=== PATIENT | female | born 1940 | race Caucasian/White ===

== ENCOUNTER → 2017-07-10 | Outpatient (CLI) | payer MEDICARE, MEDICAID ==
--- NOTE | 2017-07-10 17:40 | RADIOLOGY REPORT (SQ) ---
EXAM DESCRIPTION: CT LTD RENAL STONE PROTOCOL ON COMPLETED DATE/TIME: 07/10/2017 5:21 pm REASON FOR STUDY: CALCULUS OF URETER N20.1 CALCULUS OF URETER COMPARISON: None. TECHNIQUE: CT scan of the abdomen and pelvis performed without intravenous or oral contrast. Images reviewed with lung, soft tissue, and bone windows. Reconstructed coronal and sagittal MPR images revi ewed. All images stored on PACS. All CT scanners at this facility use dose modulation, iterative reconstruction, and/or weight based d osing when appropriate to reduce radiation dose to as low as reasonably achievable (ALARA). [facility]: Dose Right [facility]: CareDose [facility]: Dose Right [facility]: Teradose 4D [facility]: Smart [employer] RADIATION DOSE: Up-to-date CT equipment and radiation dose reduction techniques were employed. CTDIv ol: 7.0 mGy. DLP: 339 mGy-cm.mGy. LIMITATIONS: None. FINDINGS: LOWER CHEST: No significant findings. No nodules or infiltrates. NON-CONTRASTED LIVER, SPLEEN, ADRENALS: Evaluation limited by lack of IV contrast. No identified sign ificant masses. PANCREAS: No masses. No peripancreatic inflammatory changes. GALLBLADDER: Surgically absent. RIGHT KIDNEY AND URETER: No suspicious masses. Assessment limited by lack of IV contrast. No signif icant calcifications. No hydronephrosis or hydroureter. LEFT KIDNEY AND URETER: No suspicious masses. Assessment limited by lack of IV contrast. Cannot ent irely rule out a 3 mm stone in the distal left ureter, but there is no hydronephrosis. This may repr esent a phlebolith. AORTA AND RETROPERITONEUM: No aneurysm. No retroperitoneal masses or adenopathy. BOWEL AND PERITONEAL CAVITY: No masses or inflammatory changes are appreciated. Surgical suture is p resent in the small bowel in the mid pelvis. APPENDIX: Surgically absent. PELVIS, BLADDER, AND ABDOMINAL WALL:No abnormal masses. No free fluid. Bladder normal. BONES: No significant findings. OTHER: No other significant finding. IMPRESSION: 1. There is a 3 mm calcification in the left side of the pelvis there could possibly be in the distal ureter, but there is no hydronephrosis or hydroureter. COMMENT: Quality ID # [id number]: Final reports with documentation of one or more dose reduction techniques (e.g., Automated exposure control, adjustment of the mA and/or kV according to patient size, use of iterative reconstruction technique) TECHNICAL DOCUMENTATION: JOB ID: [id number] [employer]- All Rights Reserved
== END ==
LOC: RAD 16:57
PROVIDERS: ATTEND Internal Medicine
DX: N20.1 Calculus of ureter (principal)
CPT/HCPCS: 76380

== ENCOUNTER 2018-01-24 15:45 | Emergency (ER) | payer MEDICARE, MEDICAID ==
[2018-01-24] MEDS ORDERED: LIDOCAINE 1% INJ-PF (10 MG/ML) 30 ML SDV INJ ONE (15:51)
--- NOTE | 2018-01-24 16:38 | ER Document Report ---
ED General - General Chief Complaint: Fall Stated Complaint: FALL Time Seen by Provider: 01/24/18 15:45 Mode of Arrival: Medic Information source: Patient Notes: 77-year-old female presents after mechanical fall by EMS. Patient notes she tripped over a curb, fell face forward and tried to catch herself with her hands but struck her face. Her glasses are noted to have cut her nose. Patient denies any other injuries and denies any back pain neck pain Patient denies any chest pain loss consciousness or any other concerns TRAVEL OUTSIDE OF THE [place] IN LAST 30 DAYS: No - HPI Onset: Just prior to arrival Onset/Duration: Sudden Quality of pain: Achy Severity: Mild Pain Level: 1 Associated symptoms: Other Exacerbated by: Denies Relieved by: Denies Similar symptoms previously: No Recently seen / treated by doctor: No - Related Data Allergies/Adverse Reactions: codeine [Codeine] Allergy (Unknown, Verified 01/24/18 15:53) fluoxetine HCl [From Prozac] Allergy (Unknown, Verified 01/24/18 15:53) Past Medical History - Social History Smoking Status: Never Smoker Cigarette use (# per day): No Chew tobacco use (# tins/day): No Smoking Education Provided: No Frequency of alcohol use: None Drug Abuse: None Family History: Reviewed & Not Pertinent Patient has suicidal ideation: No Patient has homicidal ideation: No - Past Medical History Cardiac Medical History: Reports: Hx Congestive Heart Failure, Hx Hypercholesterolemia, Hx Hypertension Denies: Hx Coronary Artery Disease, Hx Heart Attack Pulmonary Medical History: Reports: Hx Asthma, Hx Bronchitis, Hx Pneumonia Denies: Hx COPD, Hx Tuberculosis Neurological Medical History: Denies: Hx Cerebrovascular Accident, Hx Seizures Endocrine Medical History: Reports: Hx Hypothyroidism Renal/ Medical History: Denies: Hx Peritoneal Dialysis GI Medical History: Reports: Hx Gastroesophageal Reflux Disease Musculoskeltal Medical History: Reports Hx Arthritis, Reports Hx Fibromyalgia Psychiatric Medical History: Reports: Hx Anxiety, Hx Depression Past Surgical History: Reports: Hx Appendectomy, Hx Bowel Surgery - partial bowel resection, Hx Cholecystectomy, Hx Hysterectomy - total, Hx Orthopedic Surgery - right rotator cuff, Hx Thyroid Surgery - partial thyroidectomy. Denies: Hx Pacemaker - Immunizations Hx Diphtheria, Pertussis, Tetanus Vaccination: Yes Hx Pneumococcal Vaccination: 10/01/12 Review of Systems - Review of Systems Notes: REVIEW OF SYSTEMS: CONSTITUTIONAL : Denies fever, chills, or sweats. Denies recent illness. EENT: Admits nose injury CARDIOVASCULAR: Denies chest pain. Denies palpitations or racing or irregular heart beat. Denies ankle edema. RESPIRATORY: Denies cough, cold, or chest congestion. Denies shortness of breath, difficulty breathing, or wheezing. GASTROINTESTINAL: Denies abdominal pain or distention. Denies nausea, vomiting , or diarrhea. Denies blood in vomitus, stools, or per rectum. Denies black, tarry stools. Denies constipation. GENITOURINARY: Denies difficulty urinating, painful urination, burning, frequency, blood in urine, or discharge. FEMALE GENITOURINARY: Denies vaginal bleeding, heavy or abnormal periods, irregular periods. Denies vaginal discharge or odor. MUSCULOSKELETAL: Denies back or neck pain or stiffness. Denies joint pain or swelling. SKIN: Denies rash, lesions or sores. HEMATOLOGIC : Denies easy bruising or bleeding. LYMPHATIC: Denies swollen, enlarged glands. NEUROLOGICAL: Denies confusion or altered mental status. Denies passing out or loss of consciousness. Denies dizziness or lightheadedness. Denies headache. Denies weakness or paralysis or loss of use of either side. Denies problems with gait or speech. Denies sensory loss, numbness, or tingling. Denies seizures. PSYCHIATRIC: Denies anxiety or stress. Denies depression, suicidal ideation, or homicidal ideation. ALL OTHER SYSTEMS REVIEWED AND NEGATIVE. PHYSICAL EXAMINATION: GENERAL: Well-appearing, well-nourished and in no acute distress. HEAD: Mild deformity nasal bridge laceration of the nasal bridge noted EYES: Pupils equal round and reactive to light, extraocular movements intact, conjunctiva are normal. ENT: Nares patent, oropharynx clear without exudates. Moist mucous membranes. NECK: Normal range of motion, supple without lymphadenopathy LUNGS: Breath sounds clear to auscultation bilaterally and equal. No wheezes rales or rhonchi. HEART: Regular rate and rhythm without murmurs ABDOMEN: Soft, nontender, nondistended abdomen. No guarding, no rebound. No masses appreciated. Female : deferred Musculoskeletal: Normal range of motion, no pitting or edema. No cyanosis. NEUROLOGICAL: Cranial nerves grossly intact. Normal speech, normal gait. Normal sensory, motor exams PSYCH: Normal mood, normal affect. SKIN: Laceration measuring approximately 3.2 cm of the nasal bridge, contusions of the forehead and orbital region Dictation was performed using [employer] voice recognition software Physical Exam - Vital signs Vitals: Temp Pulse Resp BP Pulse Ox 98.3 F 62 18 155/69 H 100 01/24/18 15:45 01/24/18 15:45 01/24/18 15:45 01/24/18 15:45 01/24/18 15:45 Course - Re-evaluation Re-evalutation: 01/24/18 16:41 CT pending, tetanus is up-to-date 01/25/18 08:36 CT noted no significant abnormality, wound care was provided, patient tolerated laceration repair with no complications, 3 sutures were placed follow-up in 3-5 days or immediately if there is any sign of infection or any other concerns After performing a Medical Screening Examination, I estimate there is LOW risk for OPEN FRACTURE, COMPARTMENT SYNDROME, TENDON RUPTURE, ACUTE NEUROVASCULAR INJURY, or RETAINED FOREIGN BODY, thus I consider the discharge disposition reasonable. Also, there is no evidence or peritonitis, sepsis, or toxicity. I have reevaluated this patient multiple times and no significant life threatening changes are noted. The patient and I have discussed the diagnosis and risks, and we agree with discharging home with close follow-up with the understanding that symptoms and presentations can change. We also discussed returning to the Emergency Department immediately if new or worsening symptoms occur. We have discussed the symptoms which are most concerning (e.g., changing or worsening pain, fever, numbness, weakness, cool or painful digits) that necessitate immediate return. - Vital Signs Vital signs: Temp Pulse Resp BP Pulse Ox 98.5 F 60 18 167/77 H 98 01/24/18 18:22 01/24/18 18:22 01/24/18 15:45 01/24/18 18:22 01/24/18 18:22 - Diagnostic Test Radiology reviewed: Image reviewed - CT ORBIT without contrast notes no acute abnormality, Reports reviewed Procedures - Laceration/Wound Repair Mid- Face Time completed: 17:00 Wound length (cm): 3.2 Wound's Depth, Shape: Superficial, Flap Laceration pre-procedure: Sterile PPE donned, Sterile drapes applied, Shur- Clens applied Anesthetic type: 1% Lidocaine Volume Anesthetic (mLs): 8 Wound explored: Clean, No foreign body removed Irrigated w/ Saline (mLs): 1,500 Wound Debrided: Minimal Wound Repaired With: Sutures Suture Size/Type: 5:0, Ethilon Number of Sutures: 3 Post-procedure wound care: Sterile dressing applied Post-procedure NV exam normal: Yes Complications: No Discharge - Discharge Clinical Impression: Laceration of nose Qualifiers: Encounter type: initial encounter Qualified Code(s): S01.21XA - Laceration without foreign body of nose, initial encounter Facial injury Qualifiers: Encounter type: initial encounter Qualified Code(s): S09.93XA - Unspecified injury of face, initial encounter Concussion Qualifiers: Encounter type: initial encounter Loss of consciousness presence/duration: without LOC Qualified Code(s): S06.0X0A - Concussion without loss of consciousness, initial encounter Condition: Stable Disposition: HOME, SELF-CARE Instructions: Laceration Care ([facility]), Soap Cleansing ([facility]) Referrals: VANIA MAXWELL MD [Primary Care Provider] - Follow up in 3-5 days
--- NOTE | 2018-01-24 17:05 | RADIOLOGY REPORT (SQ) ---
EXAM DESCRIPTION: CT FACIAL AREA WITHOUT COMPLETED DATE/TIME: 01/24/2018 4:55 pm REASON FOR STUDY: fall , nasal inury COMPARISON: None. TECHNIQUE: Noncontrasted images through the facial bones and orbits windowed for bone and soft tissu e. Additional coronal and sagittal reconstructed images reviewed. All images stored on PACS. All CT scanners at this facility use dose modulation, iterative reconstruction, and/or weight based d osing when appropriate to reduce radiation dose to as low as reasonably achievable (ALARA). [facility]: Dose Right [facility]: CareDose [facility]: Dose Right [facility]: Teradose 4D [facility]: Smart [employer] RADIATION DOSE: CT Rad equipment meets quality standard of care and radiation dose reduction techniq ues were employed. CTDIvol: 30.4 mGy. DLP: 553 mGy-cm. mGy. LIMITATIONS: None. FINDINGS: FACIAL BONES: No fractures. Calcific density is identified within the right frontal sinus most consistent with an osteoma ORBITS: Intact. No fracture. Symmetric intact globes and retroorbital soft tissues. PARANASAL SINUSES: Clear. No significant mucosal thickening, mass or fluid. No nasal polyps. Maxill ron sinus outlets are patent. SOFT TISSUES: Air is identified in the soft tissues anterior to the nasal bones presumably posttrauma tic in nature. INFERIOR BRAIN: Limited view. No acute findings. OTHER: No other significant finding. IMPRESSION: No acute fracture. Air is identified in the soft tissues anterior to the nasal bones pr esumably posttraumatic in nature. Other findings as noted above TECHNICAL DOCUMENTATION: JOB ID: [id number] Quality ID # 436: Final reports with documentation of one or more dose reduction techniques (e.g., Au tomated exposure control, adjustment of the mA and/or kV according to patient size, use of iterative reconstruction technique) 2010 [employer] All Rights Reserved Reading location - IP/workstation name: [email or web address]
[2018-01-24 18:24] VITALS: BP 167/77
== END 2018-01-24 18:23 | disposition home or self-care (01) ==
LOC: ER 15:45
PROC: 0HQ1XZZ Repair Face Skin, External Approach (ICD-10-PCS; principal; 2018-01-24)
DX: S01.21XA Laceration without foreign body of nose, initial encounter (principal); S06.0X0A Concussion without loss of consciousness, initial encounter; S09.93XA Unspecified injury of face, initial encounter; W18.09XA Striking against other object with subsequent fall, initial encounter; I10 Essential (primary) hypertension; J45.909 Unspecified asthma, uncomplicated
CPT/HCPCS: 99284; 90471; 70486; 12013; J3490

== ENCOUNTER → 2018-02-28 | Outpatient (CLI) | payer MEDICARE, MEDICAID ==
--- NOTE | 2018-03-01 11:28 | RADIOLOGY REPORT (SQ) ---
EXAM DESCRIPTION: MRI HEAD WITHOUT COMPLETED DATE/TIME: 02/28/2018 7:49 pm REASON FOR STUDY: R41.3 OTHR AMNESIA R41.3 OTHER AMNESIA COMPARISON: None. TECHNIQUE: Multiplanar imaging includes non-contrasted T1, T2, FLAIR, and diffusion with ADC map seq uences. Images stored on PACS. LIMITATIONS: None. FINDINGS: ANATOMY: No developmental anomalies. Normal vascular flow voids. Pituitary fossa normal. CSF SPACES: Normal in size and contour. No hemorrhage. CEREBRUM: Sulci and gyri normal in size and contour. Minimal age-appropriate increased white matter signal on FLAIR imaging. No evidence of hemorrhage, mass, or extraaxial fluid collection. POSTERIOR FOSSA: No signal alteration. No hemorrhage. No edema, masses or mass effect. Internal marjorie tory canals, cerebello-pontine angles, mastoids normal. DIFFUSION IMAGING: Negative for acute or sub-acute infarction. ORBITS: No masses. Globes normal. PARANASAL SINUSES: Minimal mucous membrane thickening left frontal and ethmoid air cells. OTHER: No other significant finding. IMPRESSION: ESSENTIALLY NORMAL MRI OF THE BRAIN FOR AGE, WITHOUT INTRAVENOUS GADOLINIUM CONTRAST. EVIDENCE OF ACUTE STROKE: NO. TECHNICAL DOCUMENTATION: JOB ID: [id number] [employer]- All Rights Reserved Reading location - IP/workstation name: [facility]
== END ==
LOC: RAD 19:18
PROVIDERS: ATTEND Internal Medicine
DX: R41.3 Other amnesia (principal)
CPT/HCPCS: 70551

== ENCOUNTER → 2018-07-04 | Outpatient (CLI) | payer MEDICARE, MEDICAID ==
--- NOTE | 2018-07-04 15:33 | RADIOLOGY REPORT (SQ) ---
EXAM DESCRIPTION: KNEE LEFT 2 VIEWS COMPLETED DATE/TIME: 07/04/2018 3:08 pm REASON FOR STUDY: PAIN IN LT KNEE M54.6 PAIN IN THORACIC SPINE M25.561 PAIN IN RIGHT KNEE M25.562 PAIN IN LEFT KNEE COMPARISON: None. NUMBER OF VIEWS: Two views. TECHNIQUE: AP and lateral radiographic images acquired of the left knee. LIMITATIONS: None. FINDINGS: MINERALIZATION: Normal. BONES: No acute fracture or dislocation. No worrisome bone lesions. JOINT: No effusion. SOFT TISSUES: No soft tissue swelling. No radio-opaque foreign body. OTHER: No other significant finding. IMPRESSION: NEGATIVE STUDY OF THE LEFT KNEE. NO RADIOGRAPHIC EVIDENCE OF ACUTE INJURY. TECHNICAL DOCUMENTATION: JOB ID: [id number] [employer]- All Rights Reserved Reading location - IP/workstation name: [facility] [email or web address]
--- NOTE | 2018-07-04 15:34 | RADIOLOGY REPORT (SQ) ---
EXAM DESCRIPTION: KNEE RIGHT 2 VIEWS COMPLETED DATE/TIME: 07/04/2018 3:08 pm REASON FOR STUDY: DEONNA IN RT KNEE M54.6 PAIN IN THORACIC SPINE M25.561 PAIN IN RIGHT KNEE M25.562 PAIN IN LEFT KNEE COMPARISON: None. NUMBER OF VIEWS: Two views. TECHNIQUE: AP and lateral radiographic images acquired of the right knee. LIMITATIONS: None. FINDINGS: MINERALIZATION: Normal. BONES: No acute fracture or dislocation. No worrisome bone lesions. JOINT: No effusion. Mild lateral compartment chondrocalcinosis SOFT TISSUES: No soft tissue swelling. No radio-opaque foreign body. OTHER: No other significant finding. IMPRESSION: Right knee lateral compartment chondrocalcinosis without significant joint space narrowi ng or bony spurring TECHNICAL DOCUMENTATION: JOB ID: [id number] [employer]- All Rights Reserved Reading location - IP/workstation name: [facility]
--- NOTE | 2018-07-04 15:36 | RADIOLOGY REPORT (SQ) ---
EXAM DESCRIPTION: T SPINE AP/LAT COMPLETED DATE/TIME: 07/04/2018 3:08 pm REASON FOR STUDY: PAIN IN THORACIC SPINE M54.6 PAIN IN THORACIC SPINE M25.561 PAIN IN RIGHT KNEE M 25.562 PAIN IN LEFT KNEE COMPARISON: Lumbar spine films same date NUMBER OF VIEWS: Two views. TECHNIQUE: AP and lateral radiographic images acquired of the thoracic spine. LIMITATIONS: None. FINDINGS: MINERALIZATION: Osteopenic ALIGNMENT: Normal. No scoliosis. VERTEBRAE: No fracture or bone lesion. Maintained height, normal segmentation. DISCS: No significant loss of height or significant narrowing. No large osteophytes. HARDWARE: None in the spine. MEDIASTINUM AND SOFT TISSUES: Normal heart size and aortic contour. No soft tissue abnormality. VISUALIZED LUNG RANGEL: Clear. OTHER: 11 rib-bearing vertebral bodies are present. 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 TECHNICAL DOCUMENTATION: JOB ID: [id number] [employer]- All Rights Reserved Reading location - IP/workstation name: [email or web address]
--- NOTE | 2018-07-04 15:38 | RADIOLOGY REPORT (SQ) ---
EXAM DESCRIPTION: C SP 4 OR 5 VIEWS COMPLETED DATE/TIME: 07/04/2018 3:08 pm REASON FOR STUDY: CERVICALGIA M54.6 PAIN IN THORACIC SPINE M25.561 PAIN IN RIGHT KNEE M25.562 DEONNA N IN LEFT KNEE COMPARISON: MRI cervical spine 12/29/2010 NUMBER OF VIEWS: Five views. TECHNIQUE: AP, lateral, obliques and odontoid radiographic images acquired of the cervical spine. LIMITATIONS: None. FINDINGS: MINERALIZATION: Osteopenic ALIGNMENT: Anatomic. VERTEBRAE: Vertebral bodies of normal height. DISCS: Disc space loss of height without bulky osteophyte formation at C4-5, C5-6, and C6-7 FORAMINA: Mild left C4-5 foraminal narrowing. Mild right C5-6 foraminal narrowing LATERAL AND POSTERIOR ELEMENTS: Facets, lateral masses and spinous processes without significant find ings. HARDWARE: None in the spine. SOFT TISSUES: No masses or calcifications. Lung apices clear. OTHER: No other significant finding. IMPRESSION: Mild disc space loss of height. No high-grade central or foraminal encroachment. TECHNICAL DOCUMENTATION: JOB ID: [id number] [employer]- All Rights Reserved Reading location - IP/workstation name: [email or web address]
--- NOTE | 2018-07-04 15:40 | RADIOLOGY REPORT (SQ) ---
EXAM DESCRIPTION: LUMBAR SPINE COMPLETE COMPLETED DATE/TIME: 07/04/2018 3:08 pm REASON FOR STUDY: LOW BACK PAIN M54.6 PAIN IN THORACIC SPINE M25.561 PAIN IN RIGHT KNEE M25.562 P AIN IN LEFT KNEE COMPARISON: Thoracic spine films same date NUMBER OF VIEWS: Five views including obliques. TECHNIQUE: AP, lateral, oblique, and sacral radiographic images acquired of the lumbar spine. LIMITATIONS: None. FINDINGS: MINERALIZATION: Osteopenic SEGMENTATION: Hypoplastic ribs on the T12 vertebral body. This puts the most inferior well-developed disc space at L5-S1. ALIGNMENT: Normal. VERTEBRAE: Maintained height. No fracture or worrisome bone lesion. DISCS: Moderate disc space loss of height at L1-2, L2-3, and L4-5. POSTERIOR ELEMENTS: Pedicles and facets are intact. No pars defect or posterior arch defects. Mild diffuse bilateral lumbar facet arthropathy HARDWARE: Surgical clips right lower quadrant. Bowel Anastomotic kieran in the pelvis. PARASPINAL SOFT TISSUES: Normal. PELVIS: Not in the field of view. SI joints unremarkable OTHER: No other significant finding. IMPRESSION: Diffuse degenerative changes as above TECHNICAL DOCUMENTATION: JOB ID: [id number] [employer]- All Rights Reserved Reading location - IP/workstation name: [email or web address]
== END ==
LOC: OD 14:37
PROVIDERS: ATTEND Pain Medicine Pain Medicine
DX: M54.6 Pain in thoracic spine (principal); M25.561 Pain in right knee; M25.562 Pain in left knee; M54.2 Cervicalgia; M54.5 Low back pain; M47.896 Other spondylosis, lumbar region; M11.261 Other chondrocalcinosis, right knee
CPT/HCPCS: 72050; 72070; 72110

== ENCOUNTER → 2019-12-01 | Outpatient (CLI) | payer MEDICARE, MEDICAID ==
--- NOTE | 2019-12-01 15:53 | RADIOLOGY REPORT (SQ) ---
EXAM DESCRIPTION: CHEST PA/LATERAL COMPLETED DATE/TIME: 12/01/2019 2:06 pm REASON FOR STUDY: COUGH COMPARISON: 06/20/2013 EXAM PARAMETERS: NUMBER OF VIEWS: two views TECHNIQUE: Digital Frontal and Lateral radiographic views of the chest acquired. RADIATION DOSE: NA LIMITATIONS: none FINDINGS: LUNGS AND PLEURA: No opacities, masses or pneumothorax. No pleural effusion. MEDIASTINUM AND HILAR STRUCTURES: No masses or contour abnormalities. HEART AND VASCULAR STRUCTURES: Heart normal size. No evidence for failure. BONES: No acute findings. HARDWARE: None in the chest. OTHER: No other significant finding. IMPRESSION: NO SIGNIFICANT RADIOGRAPHIC FINDING IN THE CHEST. TECHNICAL DOCUMENTATION: JOB ID: [id number] 2010 [employer]- All Rights Reserved Reading location - IP/workstation name: [email or web address]
== END ==
LOC: OD 13:58
PROVIDERS: ATTEND Internal Medicine
DX: R05 Cough (principal)
CPT/HCPCS: 71046

== ENCOUNTER 2020-01-12 15:36 | Inpatient (IN) | payer MEDICARE, MEDICAID ==
--- NOTE | 2020-01-12 16:27 | ER Document Report ---
HPI - HPI Time Seen by Provider: 01/12/20 15:56 Context: Patient is an 79-year-old female who presents emergency department with a chief complaint of shortness of breath. Patient has been seen by her primary care provider and has direct admit orders. She has been treated for bronchitis with albuterol, steroids, and Levaquin, but has had little relief of her symptoms. - CONSTITUTIONAL Constitutional: DENIES: Fever, Chills - RESPIRATORY Respiratory: REPORTS: Trouble Breathing, Coughing - REPRODUCTIVE Reproductive: DENIES: : - MUSCULOSKELETAL Musculoskeletal: DENIES: Extremity pain - DERM Skin Color: Normal Skin Problems: None Past Medical History - General Information source: Patient - Social History Smoking Status: Unknown if Ever Smoked Family History: Reviewed & Not Pertinent - Past Medical History Cardiac Medical History: Reports: Hx Congestive Heart Failure, Hx Hypercholesterolemia, Hx Hypertension Denies: Hx Coronary Artery Disease, Hx Heart Attack Pulmonary Medical History: Reports: Hx Asthma, Hx Bronchitis, Hx Pneumonia Denies: Hx COPD, Hx Tuberculosis Neurological Medical History: Denies: Hx Cerebrovascular Accident, Hx Seizures Endocrine Medical History: Reports: Hx Hypothyroidism Renal/ Medical History: Denies: Hx Peritoneal Dialysis GI Medical History: Reports: Hx Gastroesophageal Reflux Disease Musculoskeletal Medical History: Reports Hx Arthritis, Reports Hx Fibromyalgia Psychiatric Medical History: Reports: Hx Anxiety, Hx Depression Past Surgical History: Reports: Hx Appendectomy, Hx Bowel Surgery - partial bowel resection, Hx Cholecystectomy, Hx Hysterectomy - total, Hx Orthopedic Surgery - right rotator cuff, Hx Thyroid Surgery - partial thyroidectomy. Denies: Hx Pacemaker - Immunizations Hx Diphtheria, Pertussis, Tetanus Vaccination: Yes Hx Pneumococcal Vaccination: 10/01/12 Vertical Provider Document - CONSTITUTIONAL Agree With Documented VS: Yes Exam Limitations: No Limitations General Appearance: No Apparent Distress - INFECTION CONTROL TRAVEL OUTSIDE OF THE [place] IN LAST 30 DAYS: No - HEENT HEENT: Atraumatic, Normocephalic, PERRLA - NECK Neck: Normal Inspection - RESPIRATORY Respiratory: Wheezing - throughout - CARDIOVASCULAR Cardiovascular: Regular Rate, Regular Rhythm Pulses: Normal: Radial - GI/ABDOMEN Gastrointestinal: Abdomen Soft - MUSCULOSKELETAL/EXTREMETIES Musculoskeletal/Extremeties: FROM - NEURO Level of Consciousness: Awake, Alert, Appropriate Motor/Sensory: No Motor Deficit, No Sensory Deficit - DERM Integumentary: Warm, Dry, No Rash Course - Re-evaluation Re-evalutation: 01/12/20 16:26 Patient arrives with admission orders to the [place] floor. Coded orders placed by myself. We will continue orders by Dr. Alfred. Discharge - Discharge Clinical Impression: Cough, Bronchitis Condition: Stable Disposition: ADMITTED INPATIENT Admitting Provider: Aubrie Unit Admitted: Medical Floor - COVID rule out
[2020-01-12 16:40] LABS: ABSOLUTE BASOPHILS # (AUTO) 0.1 10^3/uL (0.0-0.2); ABSOLUTE EOSINOPHILS # (AUTO) 0.3 10^3/uL (0.0-0.6); ABSOLUTE LYMPHOCYTES (AUTO) 3.3 10^3/uL (0.5-4.7); ABSOLUTE MONOCYTES (AUTO) 0.9 10^3/uL (0.1-1.4); ABSOLUTE NEUT (AUTO) 2.7 10^3/uL (1.7-8.2); BASOPHILS % (AUTO) 0.9 % (0-2); EOSINOPHILS % (AUTO) 4.7 % (0-6); HEMATOCRIT 38.4 % (36.0-47.0); HEMOGLOBIN 13.4 g/dL (12.0-15.5); LYMPHOCYTES % (AUTO) 45.1 % (13-45); MEAN CORPUSCULAR HEMOGLOBIN 34.1 pg (27.0-33.4); MEAN CORPUSCULAR HGB CONC 34.9 g/dL (32.0-36.0); MEAN CORPUSCULAR VOLUME 98 fl (80-97); MONOCYTES % (AUTO) 11.9 % (3-13); PLATELET COUNT 191 10^3/uL (150-450); RED BLOOD COUNT 3.93 10^6/uL (3.72-5.28); RED CELL DISTRIBUTION WIDTH 12.9 % (11.5-14.0); SEGMENTED NEUTROPHILS % (AUTO) 37.4 % (42-78); TOTAL CELLS COUNTED % (AUTO) 100 %; WHITE BLOOD COUNT 7.3 10^3/uL (4.0-10.5)
[2020-01-12 16:48] LABS: ALBUMIN 4.4 g/dL (3.5-5.0); ALKALINE PHOSPHATASE 86 U/L (38-126); ANION GAP 6 (5-19); ASPARTATE AMINO TRANSFERASE 27 U/L (14-36); BILIRUBIN,TOTAL 0.8 mg/dL (0.2-1.3); BLOOD UREA NITROGEN 21 mg/dL (7-20); CALCIUM 9.4 mg/dL (8.4-10.2); CARBON DIOXIDE 28 mmol/L (22-30); CHLORIDE 103 mmol/L (98-107); GLUCOSE 107 mg/dL (75-110); POTASSIUM 4.1 mmol/L (3.6-5.0); TOTAL PROTEIN 7.3 g/dL (6.3-8.2)
[2020-01-12 17:13] LABS: APPEARANCE,URINE CLEAR; BILIRUBIN,URINE NEGATIVE (NEGATIVE); COLOR,URINE YELLOW; GLUCOSE, URINE NEGATIVE (NEGATIVE); KETONES,URINE NEGATIVE (NEGATIVE); LEUKOCYTE ESTERASE,URINE NEGATIVE (NEGATIVE); NITRITE,URINE NEGATIVE (NEGATIVE); PROTEIN,URINE NEGATIVE (NEGATIVE); URINE SPECIFIC GRAVITY 1.012; UROBILINOGEN,URINE NEGATIVE mg/dL (<2.0)
[2020-01-12] MEDS: CEFTRIAXONE 1 GM/D5W RTU 1 GM/50 ML RTUPB IV SCH (17:52)
--- NOTE | 2020-01-12 17:58 | RADIOLOGY REPORT (SQ) ---
EXAM DESCRIPTION: CT CHEST WITHOUT IMAGES COMPLETED DATE/TIME: 01/12/2020 4:38 pm REASON FOR STUDY: cough. COMPARISON: Chest radiograph, 12/01/2019. TECHNIQUE: CT scan performed of the chest without intravenous contrast. Images reviewed with lung, soft tissue and bone windows. Reconstructed coronal and sagittal MPR images reviewed. All images st ored on PACS. All CT scanners at this facility use dose modulation, iterative reconstruction, and/or weight based d osing when appropriate to reduce radiation dose to as low as reasonably achievable (ALARA). [facility]: Dose Right [facility]: CareDose [facility]: Dose Right [facility]: Teradose 4D [facility]: Smart [employer]Style Innovations RADIATION DOSE: CT Rad equipment meets quality standard of care and radiation dose reduction techniq ues were employed. CTDIvol: 12.9 mGy. DLP: 531 mGy-cm. mGy. LIMITATIONS: No technical limitations. FINDINGS: LUNGS AND PLEURA: No masses, infiltrates, or pneumothorax. No pleural effusions or pleura l calcifications. HILAR AND MEDIASTINAL STRUCTURES: No identified masses or abnormal nodes. No obvious aneurysm. HEART AND VASCULAR STRUCTURES: No aneurysm. No pericardial effusion. UPPER ABDOMEN: No significant findings. Limited exam. THYROID AND OTHER SOFT TISSUES: No masses. No adenopathy. BONES: No significant finding. HARDWARE: None in the chest. OTHER: No other significant findings. IMPRESSION: NO SIGNIFICANT FINDING ON NON-CONTRASTED CHEST CT. TECHNICAL DOCUMENTATION: JOB ID: [id number] Quality ID # [id number]: Final reports with documentation of one or more dose reduction techniques (e.g., Au tomated exposure control, adjustment of the mA and/or kV according to patient size, use of iterative reconstruction technique) 2010 [employer]- All Rights Reserved Reading location - IP/workstation name: [email or web address]
[2020-01-12] MEDS ORDERED: ALBUTEROL SULFATE HFA (90 MCG/PUFF) 8 GM MDI IH SCH (18:00)
[2020-01-12] MEDS ORDERED: LEVOFLOXACIN 750 MG/D5W RTU 750 MG/150 ML RTUPB IV ONE (18:00)
--- NOTE | 2020-01-12 18:34 | EKG REPORT ---
SEVERITY:- OTHERWISE NORMAL ECG - SINUS RHYTHM NONSPECIFC IVCD : Confirmed by: Tay Guzman MD 12-Jan-2020 18:33:27
[2020-01-12] MEDS: METHYLPREDNISOLONE INJ 125 MG/2 ML SDV IV SCH (18:42)
[2020-01-12] MEDS ORDERED: (PENDING PHARMACY ID) (Omeprazole [Prilosec 20 Mg Capsule] 20 MG) PO SCH (19:15)
[2020-01-12] MEDS ORDERED: (PENDING PHARMACY ID) (Vortioxetine Hydrobromide [Trintellix] 5 MG) PO SCH (19:15)
[2020-01-12] MEDS ORDERED: (PENDING PHARMACY ID) (Losartan Potassium [Losartan Potassium] 100 MG) PO SCH (19:15)
[2020-01-12] MEDS ORDERED: (PENDING PHARMACY ID) (Pravastatin Sodium [Pravachol] 40 MG) PO SCH (19:15)
--- NOTE | 2020-01-12 19:32 | PDOC H&P ---
History of Present Illness Admission Date/PCP: 01/12/20 16:22 VANIA MAXWELL MD History of Present Illness: LINDA WHITESIDE is a 79 year old female, She has a history of asthmatic bronchitis she came to the office today for evaluation of respiratory symptoms, cough, shortness of breath she was seen in the office about a month ago last month when she came for evaluation of respiratory symptoms including wheezing cough shortness of breath at the time she was treated with p.o. prednisone antibiotic with improvement in her symptoms. She stated that she did not completely recover from last month when she was treated for acute asthmatic bronchitis, the oxygen saturation in the office was normal at 96 but I felt patient needed to be admitted to the hospital for further management especially because of her age and in the era of coronavirus pandemic I thought she needed to be admitted and also to rule out COVID 19.The CAT scan of the chest done was negative for any acute disease Past Medical History Cardiac Medical History: Reports: Hyperlipidema, Hypertension Pulmonary Medical History: Reports: Asthma, Bronchitis, Pneumonia Endocrine Medical History: Reports: Hypothyroidism GI Medical History: Reports: Gastroesophageal Reflux Disease Musculoskeltal Medical History: Reports: Arthritis, Fibromyalgia Psychiatric Medical History: Reports: Depression Hematology: Reports: Anemia Past Surgical History Past Surgical History: Reports: Appendectomy, Cholecystectomy, Hysterectomy - total, Orthopedic Surgery - right rotator cuff Social History Smoking Status: Former Smoker Electronic Cigarette use?: No Frequency of Alcohol Use: None Hx Recreational Drug Use: Yes Drugs: None Hx Prescription Drug Abuse: No Family History Family History: Reviewed & Not Pertinent Parental Family History Reviewed: Yes Children Family History Reviewed: Yes Sibling(s) Family History Reviewed.: Yes Medication/Allergy Home Medications: Lorazepam [Ativan 1 mg Tablet] 2 tab PO BID PRN 04/24/13 Losartan Potassium 100 mg PO DAILY 04/24/13 Omeprazole [Prilosec 20 mg Capsule] 20 mg PO DAILY 04/24/13 Pravastatin Sodium [Pravachol] 40 mg PO DAILY 04/24/13 Hydrocodone Bit/Acetaminophen [Hydrocodon-Acetaminophen 5-325] 1 each PO Q6H PRN 02/03/14 Albuterol Sulfate [Albuterol Sulfate Hfa] 2 puff IH Q6HP PRN 01/12/20 Atenolol [Tenormin 50 mg Tablet] 50 mg PO DAILY 01/12/20 Levothyroxine Sodium [Synthroid 0.075 mg Tablet] 0.075 mg PO DAILY 01/12/20 Lubiprostone [Amitiza 8 Mcg Capsule] 8 mcg PO DAILY 01/12/20 Vortioxetine Hydrobromide [Brintellix] 5 mg PO DAILY 01/12/20 Allergies/Adverse Reactions: codeine [Codeine] Allergy (Unknown, Verified 01/24/18 15:53) fluoxetine HCl [From Prozac] Allergy (Unknown, Verified 01/24/18 15:53) Review of Systems Constitutional: PRESENT: fatigue Eyes: ABSENT: visual disturbances Ears: ABSENT: hearing changes Cardiovascular: ABSENT: chest pain, dyspnea on exertion, edema, orthropnea, palpitations Respiratory: PRESENT: cough, dyspnea Gastrointestinal: ABSENT: abdominal pain, constipation, diarrhea, hematemesis, hematochezia, nausea, vomiting Genitourinary: ABSENT: dysuria, hematuria Musculoskeletal: ABSENT: joint swelling Integumentary: ABSENT: rash, wounds Neurological: ABSENT: abnormal gait, abnormal speech, confusion, dizziness, focal weakness, syncope Psychiatric: ABSENT: anxiety, depression, homidical ideation, suicidal ideation Endocrine: ABSENT: cold intolerance, heat intolerance, menstrual abnormalities, polydipsia, polyuria Hematologic/Lymphatic: ABSENT: easy bleeding, easy bruising, lymphadenopathy Physical Exam Vital Signs: Temp Pulse Resp BP Pulse Ox 98.4 F 69 17 163/62 H 99 01/12/20 18:44 01/12/20 18:44 01/12/20 18:44 01/12/20 18:44 01/12/20 18:44 Intake & Output 01/11/20 01/12/20 01/13/20 06:59 06:59 06:59 Intake Total 50 Balance 50 Weight 72.7 kg General appearance: PRESENT: no acute distress Head exam: PRESENT: atraumatic, normocephalic Eye exam: PRESENT: conjunctiva pink, EOMI, PERRLA Ear exam: PRESENT: normal external ear exam Mouth exam: PRESENT: moist, tongue midline Neck exam: PRESENT: full ROM Respiratory exam: PRESENT: wheezes Cardiovascular exam: PRESENT: RRR, +S1, +S2 Vascular exam: PRESENT: normal capillary refill GI/Abdominal exam: PRESENT: normal bowel sounds, soft Rectal exam: PRESENT: deferred Neurological exam: PRESENT: alert, CN II-XII grossly intact Psychiatric exam: PRESENT: appropriate affect, normal mood Skin exam: PRESENT: dry, intact, warm. ABSENT: cyanosis, rash Results Laboratory Results: 01/12/20 16:20 01/12/20 16:20 01/12/20 01/12/20 01/12/20 16:10 16:20 16:20 WBC 7.3 RBC 3.93 Hgb 13.4 Hct 38.4 MCV 98 H MCH 34.1 H MCHC 34.9 RDW 12.9 Plt Count 191 Seg Neutrophils % 37.4 L Sodium 137.2 Potassium 4.1 Chloride 103 Carbon Dioxide 28 Anion Gap 6 BUN 21 H Creatinine 1.16 Est GFR ( Amer) 54 L Glucose 107 Calcium 9.4 Total Bilirubin 0.8 AST 27 Alkaline Phosphatase 86 Total Protein 7.3 Albumin 4.4 Urine Color YELLOW Urine Appearance CLEAR Urine pH 6.0 Ur Specific [place] 1.012 Urine Protein NEGATIVE Urine Glucose (UA) NEGATIVE Urine Ketones NEGATIVE Urine Blood NEGATIVE Urine Nitrite NEGATIVE Ur Leukocyte Esterase NEGATIVE Urine WBC (Auto) 1 Urine RBC (Auto) 0 Impressions: Chest CT 01/12/20 00:00 IMPRESSION: NO SIGNIFICANT FINDING ON NON-CONTRASTED CHEST CT. Assessment & Plan - Diagnosis (1) Severe persistent asthma with bronchitis and status asthmaticus Is this a current diagnosis for this admission?: Yes Plan: She has persistent severe asthma with status asthmaticus, she is not getting better despite optimal outpatient management, patient is admitted she will be tr eated with IV Solu-Medrol, presently in coronavirus unit to rule out coronavirus infection, she may need PFT and probably 2D echo (2) Failure of outpatient treatment Is this a current diagnosis for this admission?: Yes (3) Hypothyroid Qualifiers: Hypothyroidism type: unspecified Qualified Code(s): E03.9 - Hypothyroidism, unspecified Is this a current diagnosis for this admission?: Yes
[2020-01-12] MEDS: ALBUTEROL SULFATE HFA (90 MCG/PUFF) 200 PUFF/8.5 GM MDI IH SCH ×2 (22:03→22:17)
[2020-01-12] MEDS: LEVOTHYROXINE SODIUM 0.075 MG TABLET PO SCH (22:10)
[2020-01-12] MEDS: LORAZEPAM 1 MG TABLET PO PRN (22:12)
[2020-01-12] MEDS: HYDROCODONE/ACETAMINOPHEN 5-325 MG TABLET PO PRN (22:13)
[2020-01-12] MEDS: ATORVASTATIN CALCIUM 10 MG TABLET PO SCH (22:15)
[2020-01-12] MEDS: ATENOLOL 50 MG TABLET PO SCH (22:15)
[2020-01-12] MEDS: ENOXAPARIN SODIUM INJ 40 MG/0.4 ML DISP.SYRIN SUBCUT SCH (22:18)
[2020-01-13] MEDS: ALBUTEROL SULFATE HFA (90 MCG/PUFF) 200 PUFF/8.5 GM MDI IH SCH ×12 (00:25→21:59)
[2020-01-13] MEDS: METHYLPREDNISOLONE INJ 125 MG/2 ML SDV IV SCH ×3 (02:03→17:38)
[2020-01-13] MEDS: LEVOTHYROXINE SODIUM 0.075 MG TABLET PO SCH (06:51)
[2020-01-13] MEDS: ENOXAPARIN SODIUM INJ 40 MG/0.4 ML DISP.SYRIN SUBCUT SCH (10:20)
[2020-01-13] MEDS: PANTOPRAZOLE SODIUM 20 MG TABLET.DR PO SCH (10:20)
[2020-01-13] MEDS: LUBIPROSTONE 8 MCG CAPSULE PO SCH (10:20)
[2020-01-13] MEDS: LOSARTAN POTASSIUM 50 MG TABLET PO SCH (10:20)
[2020-01-13] MEDS: ATENOLOL 50 MG TABLET PO SCH (10:20)
[2020-01-13] MEDS: LORAZEPAM 1 MG TABLET PO PRN ×2 (11:03→17:23)
[2020-01-13] MEDS: HYDROCODONE/ACETAMINOPHEN 5-325 MG TABLET PO PRN ×2 (11:03→17:23)
[2020-01-13] MEDS: CEFTRIAXONE 1 GM/D5W RTU 1 GM/50 ML RTUPB IV SCH (17:27)
--- NOTE | 2020-01-13 20:30 | PDOC PROGRESS REPORT ---
Subjective Progress Note for:: 01/13/20 Subjective:: Patient seen by the bedside,, she is still in the coronavirus isolation she says she feels better, she has a bruise on the left leg due to a fall she sustained before this admission Reason For Visit: FAILED OUT PATIENT RX FOR ACUTE ASTHMA/COPD,? Physical Exam Vital Signs: Temp Pulse Resp BP Pulse Ox 98.8 F 67 16 123/51 L 96 01/13/20 16:44 01/13/20 16:44 01/13/20 16:44 01/13/20 16:44 01/13/20 16:44 Intake & Output 01/12/20 01/13/20 01/14/20 06:59 06:59 06:59 Intake Total 650 692 Output Total 0 600 Balance 650 92 Weight 65.8 kg General appearance: PRESENT: no acute distress Eye exam: PRESENT: PERRLA Respiratory exam: PRESENT: clear to auscultation ayden Cardiovascular exam: PRESENT: +S1, +S2 Neurological exam: PRESENT: alert Results Laboratory Results: 01/12/20 16:20 01/12/20 16:20 Impressions: Chest CT 01/12/20 00:00 IMPRESSION: NO SIGNIFICANT FINDING ON NON-CONTRASTED CHEST CT. Assessment & Plan - Diagnosis (1) Severe persistent asthma with bronchitis and status asthmaticus Is this a current diagnosis for this admission?: Yes Plan: Continue present IV Solu-Medrol, bronchodilators (2) Failure of outpatient treatment Is this a current diagnosis for this admission?: Yes (3) Hypothyroid Qualifiers: Hypothyroidism type: unspecified Qualified Code(s): E03.9 - Hypothyroidism, unspecified Is this a current diagnosis for this admission?: Yes - Time Time Spent with patient: 25-34 minutes Level of Care: TELE
[2020-01-13] MEDS: ATORVASTATIN CALCIUM 10 MG TABLET PO SCH (21:51)
[2020-01-14] MEDS: LORAZEPAM 1 MG TABLET PO PRN ×2 (00:06→21:52)
[2020-01-14] MEDS: HYDROCODONE/ACETAMINOPHEN 5-325 MG TABLET PO PRN ×3 (00:06→17:23)
[2020-01-14] MEDS: ALBUTEROL SULFATE HFA (90 MCG/PUFF) 200 PUFF/8.5 GM MDI IH SCH ×10 (00:07→21:53)
[2020-01-14] MEDS: METHYLPREDNISOLONE INJ 125 MG/2 ML SDV IV SCH ×3 (01:29→17:14)
[2020-01-14] MEDS: LEVOTHYROXINE SODIUM 0.075 MG TABLET PO SCH (05:34)
[2020-01-14] MEDS: LOSARTAN POTASSIUM 50 MG TABLET PO SCH (10:28)
[2020-01-14] MEDS: LUBIPROSTONE 8 MCG CAPSULE PO SCH (10:28)
[2020-01-14] MEDS: ENOXAPARIN SODIUM INJ 40 MG/0.4 ML DISP.SYRIN SUBCUT SCH (10:30)
[2020-01-14] MEDS: PANTOPRAZOLE SODIUM 20 MG TABLET.DR PO SCH (10:30)
[2020-01-14] MEDS: ATENOLOL 50 MG TABLET PO SCH (10:30)
--- NOTE | 2020-01-14 11:08 | XCELERA REPORT ---
[address] [address] Transthoracic Echocardiogram Report Name: LINDA WHITESIDE Age: 79 yrs Gender: Female : 1940 Patient Status: Inpatient Patient Location: [address] [place] [address] Study Date: 01/13/2020 08:35 PM Height: 65 in Weight: 145 lb BSA: 1.7 m2 Procedure: A complete two-dimensional transthoracic echocardiogram was performed (2D, M-mode, spectral and color flow Doppler). The study was technically adequate with some images being suboptimal in quality. Reason For Study: shortness of breath,hypertension Ordering Physician: VANIA MAXWELL Performed By: Luann Minaya Interpretation Summary The left ventricular ejection fraction is normal. There is borderline concentric left ventricular hypertrophy. The left ventricle is grossly normal size. LV diastolic function could not be adequately assessed. Wall motion cannot be accurately commented on, but no definite regional wall motion abnormalities noted. The right ventricular systolic function is normal. The right atrium is normal in size The left atrium is mildly dilated. There is a trace amount of mitral regurgitation There is no mitral valve stenosis. There is no aortic valve stenosis No aortic regurgitation is present. There is a trace or physiologic amount of tricuspid regurgitation Tricuspid regurgitation jet envelope not well defined to measure RV systolic pressure accurately. The aortic root is not well visualized but is probably normal size. The inferior vena cava appeared normal and decreased > 50% with respiration (RAP 5-10 mmHg) There is no pericardial effusion. MMode/2D Measurements & Calculations RVDd: 2.9 cm LVIDd: 5.0 cm FS: 40.1 % Ao root diam: 2.9 cm IVSd: 1.2 cm LVIDs: 3.0 cm EDV(Teich): 119.1 ml Ao root area: 6.6 cm2 LVPWd: 1.0 cm ESV(Teich): 35.1 ml LA dimension: 4.2 cm EF(Teich): 70.5 % Doppler Measurements & Calculations MV E max jovanna: MV P1/2t max jovanna: Ao V2 max: LV V1 max P.0 cm/sec 132.5 cm/sec 133.8 cm/sec 3.4 mmHg MV A max jovanna: MV P1/2t: 94.4 msec Ao max P.2 mmHgLV V1 max: 62.9 cm/sec MVA(P1/2t): 2.3 cm2 92.5 cm/sec MV E/A: 1.6 MV dec slope: 411.2 cm/sec2 MV dec time: 0.24 sec PA V2 max: TR max jovanna: MV P1/2t-pr_phl: 81.4 cm/sec 280.7 cm/sec 94.4 msec PA max P.6 mmHg TR max P.5 mmHg Left Ventricle The left ventricle is grossly normal size. There is borderline concentric left ventricular hypertrophy. The left ventricular ejection fraction is normal. LV diastolic function could not be adequately assessed. Wall motion cannot be accurately commented on, but no definite regional wall motion abnormalities noted. Right Ventricle The right ventricle is grossly normal size. The right ventricular systolic function is normal. Atria The right atrium is normal in size. The left atrium is mildly dilated. Interarterial septum not well visualized and not well dopplered. Cannot comment on ASD/PFO presence. Mitral Valve The mitral valve is grossly normal. There is no mitral valve stenosis. There is a trace amount of mitral regurgitation. Aortic Valve The aortic valve is grossly normal. There is no aortic valve stenosis. No aortic regurgitation is present. Tricuspid Valve The tricuspid valve is not well visualized, but is grossly normal. There is no tricuspid stenosis. There is a trace or physiologic amount of tricuspid regurgitation. Tricuspid regurgitation jet envelope not well defined to measure RV systolic pressure accurately. Pulmonic Valve The pulmonic valve is not well visualized. Great Vessels The aortic root is not well visualized but is probably normal size. The inferior vena cava appeared normal and decreased > 50% with respiration (RAP 5-10 mmHg). Effusions There is no pericardial effusion. : VANIA MAXWELL Shyamal
[2020-01-14] MEDS ORDERED: LEVALBUTEROL HCL NEB 0.63 MG/3 ML AMPUL NEB PRN (15:27)
--- NOTE | 2020-01-14 15:43 | PDOC PROGRESS REPORT ---
Subjective Progress Note for:: 01/14/20 Subjective:: Patient COVID NEGATIVE, Patient to be transferred to [facility], still on Solu-Medrol, PFT ordered Reason For Visit: FAILED OUT PATIENT RX FOR ACUTE ASTHMA/COPD,? Physical Exam Vital Signs: Temp Pulse Resp BP Pulse Ox 98.2 F 65 16 127/63 H 97 01/14/20 11:55 01/14/20 11:55 01/14/20 11:55 01/14/20 11:55 01/14/20 11:55 Intake & Output 01/13/20 01/14/20 01/15/20 06:59 06:59 06:59 Intake Total 650 1222 346 Output Total 0 1200 1100 Balance 650 22 -754 Weight 65.8 kg 65.6 kg General appearance: PRESENT: no acute distress Eye exam: PRESENT: PERRLA Respiratory exam: PRESENT: rhonchi Cardiovascular exam: PRESENT: +S1, +S2 GI/Abdominal exam: PRESENT: soft Neurological exam: PRESENT: alert Results Laboratory Results: 01/12/20 16:20 01/12/20 16:20 Impressions: Chest CT 01/12/20 00:00 IMPRESSION: NO SIGNIFICANT FINDING ON NON-CONTRASTED CHEST CT. Assessment & Plan - Diagnosis (1) Severe persistent asthma with bronchitis and status asthmaticus Is this a current diagnosis for this admission?: Yes Plan: PFT ordered, 2D echo ordered to assess LV function for systolic and diastolic function of left ventricle (2) Failure of outpatient treatment Is this a current diagnosis for this admission?: Yes (3) Hypothyroid Qualifiers: Hypothyroidism type: unspecified Qualified Code(s): E03.9 - Hypothyroidism, unspecified Is this a current diagnosis for this admission?: Yes - Time Time Spent with patient: 25-34 minutes Level of Care: [facility]
[2020-01-14] MEDS: CEFTRIAXONE 1 GM/D5W RTU 1 GM/50 ML RTUPB IV SCH (17:15)
[2020-01-14] MEDS ORDERED: LEVOFLOXACIN 750 MG/D5W RTU 750 MG/150 ML RTUPB IV SCH (18:00)
[2020-01-14] MEDS: ATORVASTATIN CALCIUM 10 MG TABLET PO SCH (21:50)
[2020-01-15] MEDS: ALBUTEROL SULFATE HFA (90 MCG/PUFF) 200 PUFF/8.5 GM MDI IH SCH ×12 (00:18→21:58)
[2020-01-15] MEDS: HYDROCODONE/ACETAMINOPHEN 5-325 MG TABLET PO PRN ×4 (00:18→21:55)
[2020-01-15] MEDS: METHYLPREDNISOLONE INJ 125 MG/2 ML SDV IV SCH ×3 (03:27→18:18)
[2020-01-15] MEDS: LEVOTHYROXINE SODIUM 0.075 MG TABLET PO SCH (06:04)
[2020-01-15] MEDS: PANTOPRAZOLE SODIUM 20 MG TABLET.DR PO SCH (09:47)
[2020-01-15] MEDS: LUBIPROSTONE 8 MCG CAPSULE PO SCH (09:47)
[2020-01-15] MEDS: LORAZEPAM 1 MG TABLET PO PRN ×2 (09:48→21:57)
[2020-01-15] MEDS: ENOXAPARIN SODIUM INJ 40 MG/0.4 ML DISP.SYRIN SUBCUT SCH (09:48)
[2020-01-15] MEDS: LOSARTAN POTASSIUM 50 MG TABLET PO SCH (09:48)
[2020-01-15] MEDS: ATENOLOL 50 MG TABLET PO SCH (09:48)
[2020-01-15] MEDS: CEFTRIAXONE 1 GM/D5W RTU 1 GM/50 ML RTUPB IV SCH (18:18)
[2020-01-15] MEDS ORDERED: METHYLPREDNISOLONE INJ 125 MG/2 ML SDV IV SCH (19:30)
--- NOTE | 2020-01-15 19:31 | PDOC PROGRESS REPORT ---
Subjective Progress Note for:: 01/15/20 Subjective:: Patient seen by the bedside, she continues to make progress, the coronavirus test was negative presenting in IMCU hopefully discharge home tomorrow Reason For Visit: FAILED OUT PATIENT RX FOR ACUTE ASTHMA/COPD,? Physical Exam Vital Signs: Temp Pulse Resp BP Pulse Ox 97.7 F 51 L 17 126/54 H 96 01/15/20 15:23 01/15/20 15:23 01/15/20 15:23 01/15/20 15:23 01/15/20 15:23 Intake & Output 01/14/20 01/15/20 01/16/20 06:59 06:59 06:59 Intake Total 1222 786 951 Output Total 1200 1100 Balance 22 -314 951 Weight 65.6 kg 69.7 kg General appearance: PRESENT: no acute distress, well-developed, well-nourished Head exam: PRESENT: atraumatic, normocephalic Eye exam: PRESENT: conjunctiva pink, EOMI, PERRLA Ear exam: PRESENT: normal external ear exam Mouth exam: PRESENT: moist, tongue midline Neck exam: PRESENT: full ROM Respiratory exam: PRESENT: clear to auscultation ayden Cardiovascular exam: PRESENT: RRR, +S1, +S2 Pulses: PRESENT: normal dorsalis pedis pul, +2 pedal pulses bilateral Vascular exam: PRESENT: normal capillary refill GI/Abdominal exam: PRESENT: normal bowel sounds, soft Rectal exam: PRESENT: deferred Neurological exam: PRESENT: alert, awake, oriented to person, oriented to place, oriented to time, oriented to situation, CN II-XII grossly intact Psychiatric exam: PRESENT: appropriate affect, normal mood Skin exam: PRESENT: dry, intact, warm Results Laboratory Results: 01/12/20 16:20 01/12/20 16:20 01/13/20 12:00 Clean Catch Midstream Urine Culture - Final NO GROWTH 2 DAYS Impressions: Chest CT 01/12/20 00:00 IMPRESSION: NO SIGNIFICANT FINDING ON NON-CONTRASTED CHEST CT. Assessment & Plan - Diagnosis (1) Severe persistent asthma with bronchitis and status asthmaticus Is this a current diagnosis for this admission?: Yes Plan: Reduce IV Solu-Medrol to 30 mg IV every 8 (2) Failure of outpatient treatment Is this a current diagnosis for this admission?: Yes (3) Hypothyroid Qualifiers: Hypothyroidism type: unspecified Qualified Code(s): E03.9 - Hypothyroidism, unspecified Is this a current diagnosis for this admission?: Yes - Time Time Spent with patient: 25-34 minutes Level of Care: IMCU
[2020-01-15] MEDS: ATORVASTATIN CALCIUM 10 MG TABLET PO SCH (21:56)
[2020-01-16] MEDS: ALBUTEROL SULFATE HFA (90 MCG/PUFF) 200 PUFF/8.5 GM MDI IH SCH ×10 (00:56→17:10)
[2020-01-16] MEDS: METHYLPREDNISOLONE INJ 40 MG/1 ML SDV IV SCH ×2 (02:46→09:16)
[2020-01-16] MEDS: LEVOTHYROXINE SODIUM 0.075 MG TABLET PO SCH (06:38)
[2020-01-16] MEDS: LORAZEPAM 1 MG TABLET PO PRN (09:16)
[2020-01-16] MEDS: HYDROCODONE/ACETAMINOPHEN 5-325 MG TABLET PO PRN ×2 (09:16→17:02)
[2020-01-16] MEDS: LUBIPROSTONE 8 MCG CAPSULE PO SCH (09:17)
[2020-01-16] MEDS: ATENOLOL 50 MG TABLET PO SCH (09:18)
[2020-01-16] MEDS: LOSARTAN POTASSIUM 50 MG TABLET PO SCH (09:18)
[2020-01-16] MEDS: ENOXAPARIN SODIUM INJ 40 MG/0.4 ML DISP.SYRIN SUBCUT SCH (09:18)
[2020-01-16] MEDS: PANTOPRAZOLE SODIUM 20 MG TABLET.DR PO SCH (09:18)
[2020-01-16 16:21] VITALS: BP 140/51
[2020-01-16] MEDS: CEFTRIAXONE 1 GM/D5W RTU 1 GM/50 ML RTUPB IV SCH (17:02)
[2020-01-16] MEDS ORDERED: METHYLPREDNISOLONE INJ 40 MG/1 ML SDV IV SCH (18:00)
--- NOTE | 2020-01-16 19:52 | PDOC DISCHARGE SUMMARY ---
Impression - Admit/DC Date/PCP Admission Date/Primary Care Provider: 01/12/20 16:22 VANIA MAXWELL MD Discharge Date: 01/16/20 - Discharge Diagnosis (1) Severe persistent asthma with bronchitis and status asthmaticus Is this a current diagnosis for this admission?: Yes (2) Failure of outpatient treatment Is this a current diagnosis for this admission?: Yes (3) Hypothyroid Is this a current diagnosis for this admission?: Yes - Additional Information Discharge Diet: As Tolerated, Cardiac Discharge Activity: Activity As Tolerated, Balance Activity w/Rest, No Lifting Over 10 Pounds Referrals: VANIA MAXWELL MD [Primary Care Provider] - (Appointment request put in followup appt. book) Prescriptions: Dm/Acetaminophen/Doxylamine [Cold-Flu Relief Liquid] 592 ml PO Q4H #592 liquid Fluticasone/Umeclidin/Vilanter [Trelegy 100-62.5-25 Mcg Ellipta 14 Dose/Dpi] 1 each IH BIDPCBL #1 inhaler Home Medications: Lorazepam [Ativan 1 mg Tablet] 2 tab PO BID PRN 04/24/13 Losartan Potassium 100 mg PO DAILY 04/24/13 Omeprazole [Prilosec 20 mg Capsule] 20 mg PO DAILY 04/24/13 Pravastatin Sodium [Pravachol] 40 mg PO DAILY 04/24/13 Hydrocodone Bit/Acetaminophen [Hydrocodon-Acetaminophen 5-325] 1 each PO Q6H PRN 02/03/14 Albuterol Sulfate [Albuterol Sulfate Hfa] 2 puff IH Q6HP PRN 01/12/20 Atenolol [Tenormin 50 mg Tablet] 50 mg PO DAILY 01/12/20 Levothyroxine Sodium [Synthroid 0.075 mg Tablet] 0.075 mg PO DAILY 01/12/20 Lubiprostone [Amitiza 8 Mcg Capsule] 8 mcg PO DAILY 01/12/20 Vortioxetine Hydrobromide [Trintellix] 5 mg PO DAILY 01/12/20 Dm/Acetaminophen/Doxylamine [Cold-Flu Relief Liquid] 592 ml PO Q4H #592 liquid 01/16/20 Fluticasone/Umeclidin/Vilanter [Trelegy 100-62.5-25 Mcg Ellipta 14 Dose/Dpi] 1 each IH BIDPCBL #1 inhaler 01/16/20 History of Present Illiness History of Present Illness: LINDA WHITESIDE is a 79 year old female, She has a history of asthmatic bronchitis she came to the office today for evaluation of respiratory symptoms, cough, shortness of breath she was seen in the office about a month ago last month when she came for evaluation of respiratory symptoms including wheezing cough shortn ess of breath at the time she was treated with p.o. prednisone antibiotic with improvement in her symptoms. She stated that she did not completely recover from last month when she was treated for acute asthmatic bronchitis, the oxygen saturation in the office was normal at 96 but I felt patient needed to be admitted to the hospital for further management especially because of her age and in the era of coronavirus pandemic I thought she needed to be admitted and also to rule out COVID 19.The CAT scan of the chest done was negative for any acute disease Hospital Course Hospital Course: Patient was admitted for the management of respiratory symptoms, persistent coughing, wheezing, shortness of breath, she was initially isolated in COVID unit she was empirically treated with IV antibiotic, Solu-Medrol, bronchodilators. She ruled out for COVID she was then transferred to [facility] bed, she was continued on IV Solu-Medrol patient improved on this regimen. Patient is being discharged home today Physical Exam Vital Signs: Temp Pulse Resp BP Pulse Ox 97.9 F 53 L 20 140/51 H 97 01/16/20 17:55 01/16/20 17:55 01/16/20 17:55 01/16/20 17:55 01/16/20 17:55 Intake & Output 01/15/20 01/16/20 01/17/20 06:59 06:59 06:59 Intake Total 786 1461 796 Output Total 1100 Balance -314 1461 796 Weight 69.7 kg 68.7 kg General appearance: PRESENT: no acute distress Eye exam: PRESENT: PERRLA Respiratory exam: PRESENT: clear to auscultation ayden Cardiovascular exam: PRESENT: +S1, +S2 GI/Abdominal exam: PRESENT: soft Neurological exam: PRESENT: alert, CN II-XII grossly intact Results Laboratory Results: WBC 7.3 10^3/uL (4.0-10.5) 01/12/20 16:20 RBC 3.93 10^6/uL (3.72-5.28) 01/12/20 16:20 Hgb 13.4 g/dL (12.0-15.5) 01/12/20 16:20 Hct 38.4 % (36.0-47.0) 01/12/20 16:20 MCV 98 fl (80-97) H 01/12/20 16:20 MCH 34.1 pg (27.0-33.4) H 01/12/20 16:20 MCHC 34.9 g/dL (32.0-36.0) 01/12/20 16:20 RDW 12.9 % (11.5-14.0) 01/12/20 16:20 Plt Count 191 10^3/uL (150-450) 01/12/20 16:20 Lymph % (Auto) 45.1 % (13-45) H 01/12/20 16:20 [place] % (Auto) 11.9 % (3-13) 01/12/20 16:20 Eos % (Auto) 4.7 % (0-6) 01/12/20 16:20 Baso % (Auto) 0.9 % (0-2) 01/12/20 16:20 Absolute Neuts (auto) 2.7 10^3/uL (1.7-8.2) 01/12/20 16:20 Absolute Lymphs (auto) 3.3 10^3/uL (0.5-4.7) 01/12/20 16:20 Absolute Monos (auto) 0.9 10^3/uL (0.1-1.4) 01/12/20 16:20 Absolute Eos (auto) 0.3 10^3/uL (0.0-0.6) 01/12/20 16:20 Absolute Basos (auto) 0.1 10^3/uL (0.0-0.2) 01/12/20 16:20 Seg Neutrophils % 37.4 % (42-78) L 01/12/20 16:20 Sodium 137.2 mmol/L (137-145) 01/12/20 16:20 Potassium 4.1 mmol/L (3.6-5.0) 01/12/20 16:20 Chloride 103 mmol/L (98-107) 04/13/20 16:20 Carbon Dioxide 28 mmol/L (22-30) 01/12/20 16:20 Anion Gap 6 (5-19) 01/12/20 16:20 BUN 21 mg/dL (7-20) H 01/12/20 16:20 Creatinine 1.16 mg/dL (0.52-1.25) 01/12/20 16:20 Est GFR ( Amer) 54 (>60) L 01/12/20 16:20 Est GFR (MDRD) Non-Af 45 (>60) L 01/12/20 16:20 Glucose 107 mg/dL (75-110) 01/12/20 16:20 Calcium 9.4 mg/dL (8.4-10.2) 01/12/20 16:20 Total Bilirubin 0.8 mg/dL (0.2-1.3) 01/12/20 16:20 Direct Bilirubin 0.0 mg/dL (0.0-0.4) 01/12/20 16:20 Neonat Total Bilirubin Not Reportable 01/12/20 16:20 Neonat Direct Bilirubin Not Reportable 01/12/20 16:20 Neonat Indirect Bili Not Reportable 01/12/20 16:20 AST 27 U/L (14-36) 01/12/20 16:20 ALT 21 U/L (<35) 01/12/20 16:20 Alkaline Phosphatase 86 U/L (38-126) 01/12/20 16:20 Total Protein 7.3 g/dL (6.3-8.2) 01/12/20 16:20 Albumin 4.4 g/dL (3.5-5.0) 01/12/20 16:20 Urine Color YELLOW 01/12/20 16:10 Urine Appearance CLEAR 01/12/20 16:10 Urine pH 6.0 (5.0-9.0) 01/12/20 16:10 Ur Specific [place] 1.012 01/12/20 16:10 Urine Protein NEGATIVE mg/dL (NEGATIVE) 01/12/20 16:10 Urine Glucose (UA) NEGATIVE mg/dL (NEGATIVE) 01/12/20 16:10 Urine Ketones NEGATIVE mg/dL (NEGATIVE) 01/12/20 16:10 Urine Blood NEGATIVE (NEGATIVE) 01/12/20 16:10 Urine Nitrite NEGATIVE (NEGATIVE) 01/12/20 16:10 Urine Bilirubin NEGATIVE (NEGATIVE) 01/12/20 16:10 Urine Urobilinogen NEGATIVE mg/dL (<2.0) 01/12/20 16:10 Ur Leukocyte Esterase NEGATIVE (NEGATIVE) 01/12/20 16:10 Urine WBC (Auto) 1 /HPF 01/12/20 16:10 Urine RBC (Auto) 0 /HPF 01/12/20 16:10 U Hyaline Cast (Auto) 1 /LPF 01/12/20 16:10 Urine Bacteria (Auto) TRACE /HPF 01/12/20 16:10 Squamous Epi Cells Auto <1 /HPF 01/12/20 16:10 Urine Mucus (Auto) RARE /LPF 01/12/20 16:10 Urine Ascorbic Acid NEGATIVE (NEGATIVE) 01/12/20 16:10 COVID-19 Source NASOPHARYNGEAL 01/12/20 16:10 COVID-19 (ALESIA) NOT DETECTED 01/12/20 16:10 Impressions: Chest CT 01/12/20 00:00 IMPRESSION: NO SIGNIFICANT FINDING ON NON-CONTRASTED CHEST CT. Stroke Is this a Stroke Patient?: No Acute Heart Failure - Is this a Heart Failure Patient?: No
[2020-01-17] MEDS ORDERED: PANTOPRAZOLE SODIUM 20 MG TABLET.DR PO SCH (06:00)
== END 2020-01-16 18:32 | disposition home or self-care (01) | DRG 203 ==
LOC: ER 15:36 → EH 16:22 → 5 18:35 → 3W 01-14 16:32
PROVIDERS: ADMIT Internal Medicine; ATTEND Internal Medicine
DX: J45.52 Severe persistent asthma with status asthmaticus (principal); E03.9 Hypothyroidism, unspecified; E78.5 Hyperlipidemia, unspecified; I10 Essential (primary) hypertension; K21.9 Gastro-esophageal reflux disease without esophagitis; F32.9 Major depressive disorder, single episode, unspecified; M79.7 Fibromyalgia; D64.9 Anemia, unspecified; Z79.890 Hormone replacement therapy; Z79.899 Other long term (current) drug therapy; Z87.891 Personal history of nicotine dependence; Z88.6 Allergy status to analgesic agent; Z88.8 Allergy status to other drugs, medicaments and biological substances; Z20.828 Contact with and (suspected) exposure to other viral communicable diseases
CPT/HCPCS: 36415; 71250; 80053; 81001; 85025; 87040; 87086; 87635; 93005; 93010; 93306; 99285; A9270 GY; J0696; J1650; J1956; J2920; J2930; J3490